=== PATIENT | male | born 1970 | race Hispanic/Latino ===

== ENCOUNTER 2024-02-06 16:19 | Emergency (ER) | payer SELFPAY ==
[2024-02-06 16:19] VITALS: BP 122/84
--- NOTE | 2024-02-06 18:54 | ED.GENMED ---
History of Present Illness
General
Chief Complaint: Skin Surface Trauma
Source: patient
Exam Limitations: none
Time Seen by Provider: 02/06/24 17:57
Nursing documentation reviewed up to this point in time: agreed with
History of Present Illness
History of Present Illness:
53-year-old male szjvd-prug-kkiuwtiy presents with a right pinky finger laceration today around 3 PM while at work. Patient says that he cut his finger on a piece of metal that was sharp. Patient denies that there was any significant penetrating
injury. He has normal sensation and strength and range of motion. 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 This is unchanged. He can flex and extend otherwise. Bleeding was controlled. He is not on any
anticoagulation. His last tetanus shot was a year ago
Past History
Past History
ED Past Medical History: None
ED Past Surgical History: None
Patient has exhibited threatening behavior?: No
Social History
Tobacco: Non-smoker
Alcohol: None
Drug: None
Living: with family
Employment: Employed
Review of Systems
Review of Systems
Allergies reviewed?: Yes
All Other Systems: Not applicable
Phy Exam
Physical Exam
Physical Exam:
GENERAL: Alert , in no apparent distress, comfortable at rest
HEAD: NCAT
CV: 2+ radial pulse, cap refill intact to R hand
NEUROLOGICAL: Alert and oriented, no focal neuro deficits, , 5/5 strength, sensation intact, ambulation slight limp right leg
SKIN: Warm and dry, obliquely oriented laceratino to palmar surface of the R prox pinky finger; approx 2.5 cm
bleeding controled
MUSCULOSKELETAL: R pinky finger laceration palmar aspet
full rom
normal sensaation to light touch
normal ROM with exception of the DIP joint which has chroinc mild mallet deformity
PSYCH: Normal and appropriate interaction.
Course
Vital Signs
Initial and Last Documented VS:
Initial Vital Signs
Temp Pulse Resp BP Pulse Ox
99.4 F 100 20 122/84 96
02/06/24 16:19 02/06/24 16:19 02/06/24 16:19 02/06/24 16:19 02/06/24 16:19
Last Documented Vital Signs
Temp Pulse Resp BP Pulse Ox
99.4 F 100 20 122/84 96
02/06/24 16:19 02/06/24 16:19 02/06/24 16:19 02/06/24 16:19 02/06/24 16:19
Procedures
Laceration Closure
Right Fifth Finger(s):
Status of Wound: clean
Size of Wound in cm: 2.5
Description of Wound Edges: sharp
Preparation: cleaned with saline
Anesthesia: 1% Lidocaine and Digital-Regional
Revision/Debridement: irrigate-direct pressure
Wound exploration: no tendon involvement
Type of Closure: single layer closure
Skin Closure Material: 5-0 nylon
Number of sutures: 5
MDM/Problems Addressed
Differential Diagnosis Includes:
laceration, tendon or nerve injury
MDM/Problems Addressed:
53-year-old [id number] Kyrgyz-speaking male presents for right hand laceration today while at work. This is Workmen's Comp. He has normal strength and sensation and his typical range of motion, he is not anticoagulated. His tetanus shot
is up-to-date. The laceration is obliquely oriented to the palmar surface without any obvious tendon exposures. There is subcutaneous. The wound was anesthetized and irrigated and then sutured with 5 sutures. It was well-approximated. There is
no issues. He will be instructed to follow-up with Workmen's Comp. Sutures out in 7 to 10 days
*Critical Care Note
Total Time (30-74mins, 75-104mins- exclusive of procedures): Not Applicable
ED Attending Note
-
Portions of this chart may have been created with voice recognition software.� Occasional wrong word or��sound alike� substitutions may have occurred due to the inherent limitations of voice recognition software.
Discharge Plan
Departure
Patient Disposition: Home (Routine Discharge)
Date of Disposition: 02/06/24
Time of Disposition: 18:59
Patient with high blood pressure during this ER visit?: No
Condition: Fair
Covid-19: Not Applicable
Discharge Problem:
Finger laceration
Instructions: Laceration Repair With Stitches (DC)
Prescriptions:
No Action
acetaminophen [Tylenol] 325 mg Tablet
650 mg PO Q4H PRN (Reason: MILD PAIN)
ascorbic acid (vitamin C) [Vitamin C] 500 mg Tablet
500 mg PO DAILY
bacitracin zinc 500 unit/gram Ointment
1 applic topical BID 7 Days Qty: 28.35 0RF
cephalexin 500 mg Capsule
500 mg PO QID 10 Days Qty: 40 0RF
Rx Instructions:
Patient aware to stop using prior Keflex prescription
Referrals:
UNKNOWN - PT DOES,NOT KNOW [Family Provider] -
Stand Alone Forms: Return to Work
Activity Restrictions/Additional Instructions:
keep the wound clean and dry for 24 hours.
after that you can remove the dressing and wash with mild soap and water, then dry and cover with antibiotic ointment and a bandaid or a dressing.
do this at least once a day. in 7-10 days the stitches need to be removed, follow up here or at a clinic or doctor to have this done.
since this was work related injury, followo up with your boss regarding workman's comp. no work until you see them.
return for any concerns.
tylenol or motrin for pain as needed
Mantenga la herida limpia y seca samantha 24 horas.
despu�s de eso puedes quitar el vendaje y roseanne con agua y jab�n suave, luego secar y cubrir con bev�ento antibi�jason y olivia tirita o un vendaje.
Andres esto al menos olivia vez al d�a. en 7-10 d�as se deben quitar los puntos, andres un seguimiento aqu� o en olivia cl�junie o m�dico para que lo jessica.
Dado que se trata de olivia lesi�n relacionada con el trabajo, consulte con brock jefe sobre la compensaci�n laboral. No hay trabajo hasta que los veas.
Regreso por cualquier inquietud.
Tylenol o Motrin para el dolor seg�n sea necesario.
Interventions
Interventions:
*Risk Screen - Suicide Last Done: 02/06/24 16:58
*Neglect/Abuse Screening Last Done: 02/06/24 16:58
*ED COVID-19 Vaccine History Last Done: 02/06/24 16:58
ED-Skin Assessment Last Done: 02/06/24 16:58
Discharge Date and Time
Print Language: KAZAKH
[2024-02-06 19:13] VITALS: BP 122/84
== END 2024-02-06 19:14 | disposition home or self-care (01) ==
LOC: EMR 16:19
PROVIDERS: EMERGENCY PHYSICIAN Emergency Medicine
DX: S61.216A Laceration without foreign body of right little finger without damage to nail, initial encounter (principal); W26.8XXA Contact with other sharp object(s), not elsewhere classified, initial encounter; Y99.0 Civilian activity done for income or pay
CPT/HCPCS: 99282; 12001

== ENCOUNTER 2024-02-08 02:20 | Emergency (ER) | payer BC, SELFPAY ==
[2024-02-08 02:23] VITALS: BP 119/87
[2024-02-08 02:27] VITALS: BMI 28.4
--- NOTE | 2024-02-08 03:15 | ED.GENMED ---
History of Present Illness
<JONAS Burton - Last Filed: 02/08/24 06:06>
General
Chief Complaint: Throat Problem
Source: patient
Exam Limitations: none
Time Seen by Provider: 02/08/24 03:03
History of Present Illness
History of Present Illness:
Patient is a53 yo M w/ no PMH who presents to the ED w/ R neck/jaw pain x2 days. Pain has been worsening and pt is no longer able to eat, drink, or speak today due to pain. Pain is located from R ear into TMJ/submandibular area. Reports fever 2
night ago when pain started but denies fever since. Admits to ear pain and decreased hearing on R side. Notes associated dry cough x 1 wk. Denies ear drainage, congestion, rhinorrhea, and sore throat. Denies similar symptoms in past. Denies any
recent illness, sick contacts, and travel. Reports some stomach pain but says likely due to hunger.
Past History
<JONAS Burton - Last Filed: 02/08/24 06:06>
Past History
ED Past Medical History: None
ED Past Surgical History: None
Patient has exhibited threatening behavior?: No
Social History
Tobacco: Non-smoker
Alcohol: None
Drug: None
Living: with family
Employment: Employed
Review of Systems
<JONAS Burton - Last Filed: 02/08/24 06:06>
Review of Systems
Constitutional: Denies fever, fatigue or chills
EENT: Denies sore throat or runny nose
Respiratory: Reports cough; Denies trouble breathing
Cardiac: Denies chest pain or palpitations
ABD/GI: Reports abdominal pain; Denies nausea, vomiting, diarrhea or constipated
: Denies dysuria
Musculoskeletal: Reports neck pain; Denies joint pain or muscle pain
Skin: Denies itching or rash
Neurological: Denies dizzy, headache, weakness or numbness
Phy Exam
<JONAS Burton - Last Filed: 02/08/24 06:06>
General Physical Exam
General Presentation: moderate distress
General age: appears stated age
General Skin: warm and dry
General Habitus: normal
General Mental: tearful
ENT Exam
ENT Exam: TM's normal, pharynx normal, normocephalic and other (mild erythema & edema of R ear canal. Tenderness to palpation of R tragus & pinna. No tenderness to palpation of R mastoid process. No tenderness and normal canal L ear. Tender R
preauricular, post auricular, submandibular, tonsillar LN. Swollen L preauricular LN. Nonpalpable and nontender L LN. )
Eye Exam
Eye Exam: PERRL
Cardiovascular Exam
Cardiovascular Exam: regular rate/rhythm, no edema, no gallop and no murmur
Pulmonary Exam
Pulmonary Exam: lungs clear, no respiratory distress, no rales, no crackles, no rhonchi and no wheezing
Gastrointestinal Exam
Gastrointestinal Exam: normal bowel sounds, soft, non distended and no masses
Palpation: left upper quadrant: Mild tenderness and right upper quadrant: Mild tenderness
Neurological Exam
Neurological Exam: alert and oriented x3
Course
<JONAS Burton - Last Filed: 02/08/24 06:06>
Orders/Labs/Results
Orders:
Orders
02/08/24 03:20
COVID-19 Antigen Urgent
Source: Nasal Swab
Influenza A+B Rapid Molecular Urgent
[facility] Source: Nasal Swab
Specimen Description:
02/08/24 03:41
CT Neck With Iv Contrast Urgent
Comment:
Reason For Exam: r sided swelling
02/08/24 04:35
Complete Blood Count/With Diff Urgent
Comprehensive Metabolic Panel Urgent
02/08/24 05:44
Clindamycin HCl [Cleocin] 450 mg PO NOW STA
Abnormal Lab Results
02/08/24
04:35
WBC 11.9 H 10^3/uL
(4.8-10.8)
MCH 31.8 H pg
(27.0-31.0)
Absolute Neuts (auto) 9.2 H 10^3/uL
(1.4-6.5)
Absolute Monos (auto) 0.9 H 10^3/uL
(0.1-0.6)
Neutrophils % 77.2 H %
(42.2-75.2)
Lymphocytes % 14.6 L %
(20.5-51.1)
Creatinine 0.6 L mg/dL
(0.7-1.3)
Glucose 100 H mg/dl
(70-99)
02/08/24 04:35
02/08/24 04:35
Vital Signs
Initial and Last Documented VS:
Initial Vital Signs
Temp Pulse Resp BP Pulse Ox
99.5 F 94 16 119/87 96
02/08/24 02:23 02/08/24 02:23 02/08/24 02:23 02/08/24 02:23 02/08/24 02:23
Last Documented Vital Signs
Temp Pulse Resp BP Pulse Ox
99.4 F 86 20 133/81 98
02/08/24 03:16 02/08/24 04:30 02/08/24 04:30 02/08/24 04:30 02/08/24 04:30
Samiralt;Germán Florez, DO - Last Filed: 02/08/24 05:50>
Orders/Labs/Results
Orders:
Orders
02/08/24 03:20
COVID-19 Antigen Urgent
Source: Nasal Swab
Influenza A+B Rapid Molecular Urgent
[facility] Source: Nasal Swab
Specimen Description:
02/08/24 03:41
CT Neck With Iv Contrast Urgent
Comment:
Reason For Exam: r sided swelling
02/08/24 04:35
Complete Blood Count/With Diff Urgent
Comprehensive Metabolic Panel Urgent
02/08/24 05:44
Clindamycin HCl [Cleocin] 450 mg PO NOW STA
Abnormal Lab Results
02/08/24
04:35
WBC 11.9 H 10^3/uL
(4.8-10.8)
MCH 31.8 H pg
(27.0-31.0)
Absolute Neuts (auto) 9.2 H 10^3/uL
(1.4-6.5)
Absolute Monos (auto) 0.9 H 10^3/uL
(0.1-0.6)
Neutrophils % 77.2 H %
(42.2-75.2)
Lymphocytes % 14.6 L %
(20.5-51.1)
Creatinine 0.6 L mg/dL
(0.7-1.3)
Glucose 100 H mg/dl
(70-99)
02/08/24 04:35
02/08/24 04:35
Vital Signs
Initial and Last Documented VS:
Initial Vital Signs
Temp Pulse Resp BP Pulse Ox
99.5 F 94 16 119/87 96
02/08/24 02:23 02/08/24 02:23 02/08/24 02:23 02/08/24 02:23 02/08/24 02:23
Last Documented Vital Signs
Temp Pulse Resp BP Pulse Ox
99.4 F 86 20 133/81 98
02/08/24 03:16 02/08/24 04:30 02/08/24 04:30 02/08/24 04:30 02/08/24 04:30
<JONAS Burton - Last Filed: 02/08/24 06:06>
MDM/Problems Addressed
Differential Diagnosis Includes:
otitis externa, parotitis, TMJ dysfunction
<Germán Florez DO - Last Filed: 02/08/24 05:50>
MDM/Problems Addressed
Differential Diagnosis Includes:
otitis externa, parotitis, TMJ dysfunction , TRIMMER MACHINE
<JONAS Burton - Last Filed: 02/08/24 06:06>
*Critical Care Note
Total Time (30-74mins, 75-104mins- exclusive of procedures): Not Applicable
<Germán Florez DO - Last Filed: 02/08/24 05:50>
Patient Management
Discussion with other providers: Cash Accounting Clerk (MASS- will see in office this morning)
<Germán Florez DO - Last Filed: 02/08/24 05:50>
Update Note
Update Note:
CT neck with contrast:
IMPRESSION:
Right tonsillar rim-enhancing fluid collection measures 1.4 x 1.7 x 1.9 cm consistent with a peritonsillar abscess. No extra tonsillar extension. No prevertebral stranding or fluid.
The vessels within the neck are patent. The airway is patent.
ED Attending Note
<JONAS Burton - Last Filed: 02/08/24 06:06>
-
Portions of this chart may have been created with voice recognition software.� Occasional wrong word or��sound alike� substitutions may have occurred due to the inherent limitations of voice recognition software.
Discharge Plan
Departure
Patient Disposition: Home (Routine Discharge)
Date of Disposition: 02/08/24
Time of Disposition: 05:44
Patient with high blood pressure during this ER visit?: Yes
Condition: Good
Discharge Problem:
Abscess, peritonsillar
Instructions: Peritonsillar Abscess, Adult (DC), BLOOD PRESSURE
Prescriptions:
New
clindamycin HCl 150 mg capsule
450 mg PO TID 10 Days Qty: 90 0RF
Referrals:
Shane Beth MD [Active] - Next open appointment (Please call the office at 0900 this AM)
NONE,* [Family Provider] -
Activity Restrictions/Additional Instructions:
It was a pleasure meeting you and taking part in your care. We hope for your continued healing and wellness.
Please read discharge instructions in their entirety. However, they are for general education and may not describe your exact diagnosis at discharge. Information on your ER visit and medical conditions were discussed with you along with appropriate
follow up information...
If indicated, please take your medications as instructed and indicated on discharge paperwork.
Please schedule a follow up appointment as directed. Call to schedule an appointment
Please return to the emergency department with ANY change in, persisting, or worsening of symptoms. If any of your symptoms do not improve, or persist, or become more severe within 6-12 hours, please return to the emergency department for further
care.
Please return to the emergency department if you develop a headache, neck pain/stiffness, fever greater than 100.4F, chest pain, shortness of breath, persistent nausea, vomiting, slurred speech, difficulty walking, numbness/tingling, weakness, signs
of infection or any other symptoms that are worrisome to you.
If you have any questions or concerns please do not hesitate to call the Hospital at or E-mail me directly at [email or web address]
Interventions
Interventions:
*Risk Screen - Suicide Last Done: 02/08/24 02:23
*General Assessment Last Done: 02/08/24 02:23
*Neglect/Abuse Screening Last Done: 02/08/24 02:23
ED- Fall Risk Assessment Last Done: 02/08/24 03:14
*ED COVID-19 Vaccine History Last Done: 02/08/24 02:28
ED-EENT Assessment Last Done: 02/08/24 03:00
ED- Pulmonary Assessment Last Done: 02/08/24 03:00
Discharge Date and Time
Print Language: NEPALESE
[2024-02-08 03:50] LABS: COVID-19 Antigen Negative (Negative)
[2024-02-08 04:30] VITALS: BP 133/81
[2024-02-08 04:53] LABS: % Basophils 0.3 % (0-2); % Eosinophils 0.5 % (0-6); % Immature Granulocytes 0.3 % (0-0.5); % Lymphocytes 14.6 % (20.5-51.1); % Monocytes 7.1 % (1.7-9.3); % Neutrophils 77.2 % (42.2-75.2); Absolute Eosinophils 0.1 10^3/uL (0-0.7); Absolute Lymphocytes 1.7 10^3/uL (1.2-3.4); Absolute Monocytes 0.9 10^3/uL (0.1-0.6); Absolute Neutrophils 9.2 10^3/uL (1.4-6.5); Hematocrit 44.4 % (39.0-52.0); Hemoglobin 15.7 g/dL (13.0-18.0); Mean Corp Hgb Conc. 35.4 g/dL (33.0-37.0); Mean Corpuscular Hgb 31.8 pg (27.0-31.0); Mean Corpuscular Volume 89.9 fL (80.0-94.0); Mean Platelet Volume 9.2 fL (7.4-10.4); Nucleated Red Blood Cells % 0 % (-); Platelet Count 232 10^3/uL (130-400); Red Blood Cell Count 4.94 10^6/uL (4.70-6.10); Red Cell Dist. Width 12.3 % (11.5-14.5); White Blood Cell Count 11.9 10^3/uL (4.8-10.8)
[2024-02-08 05:14] LABS: ALT (SGPT) 20 U/L (0-50); AST (SGOT) 22 U/L (17-59); Albumin 4.5 g/dl (3.5-5.0); Alkaline Phosphatase 67 U/L (38-126); Blood Urea Nitrogen 12 mg/dl (9-20); Calcium 9.2 mg/dl (8.4-10.2); Carbon Dioxide 25 mmol/L (22-30); Chloride 105 mmol/L (98-107); Estimated Creatinine Clearance > 125 ml/min; Glucose 100 mg/dl (70-99); Potassium 4.5 mmol/L (3.5-5.1); Sodium 143 mmol/L (135-145); Total Protein 7.8 g/dl (6.3-8.2); eGFR > 60.00
[2024-02-08 06:05] VITALS: BP 137/84
[2024-02-08] MEDS: CLEOCIN 450 MG PO (06:10)
[2024-02-08] MEDS: PERCOCET 5/325 1 TABLET PO (06:19)
== END 2024-02-08 06:20 | disposition home or self-care (01) ==
LOC: EMR 02:20
PROVIDERS: EMERGENCY PHYSICIAN Student in an Organized Health Care Education/Training Program
DX: J36 Peritonsillar abscess (principal); R03.0 Elevated blood-pressure reading, without diagnosis of hypertension; Z11.52 Encounter for screening for COVID-19
CPT/HCPCS: 99284; 70491; 80053; 85025; 87502; 87811; Q9967